=== PATIENT | female | born 2000 | race Caucasian/White ===

== ENCOUNTER 2023-06-11 04:49 | Outpatient (CLI) | payer SELFPAY | END 2023-06-11 04:50 | disposition home or self-care (01) | LOC: AMB 06-27 12:10 | PROVIDERS: Visit Provider Family Medicine | DX: M53.3 Sacrococcygeal disorders, not elsewhere classified (principal) | CPT/HCPCS: A0425; A0427 ==

== ENCOUNTER 2023-06-11 05:09 | Emergency (ER) | payer SELFPAY ==
[2023-06-11 05:14] VITALS: BP 135/74; PULSE 99; RESP 18; TEMP 36.8; O2SAT 99; BMI 26.6
--- NOTE | 2023-06-11 05:18 | ED.SKABFB ---
HPI - Skin/Abscess/Foreign Bdy General Time Seen by Provider: 05:18 Date Seen: 06/11/23 Chief complaint: Skin/Abscess/Foreign Body Stated complaint: tailbone pain Time Seen by Provider: 06/11/23 05:14 Source: patient and RN notes reviewed Mode of arrival: EMS Limitations: no limitations History of Present Illness HPI narrative: Seema is a very pleasant 23-year-old female with a history of broken tailbone 2 years ago who comes to the emergency room for evaluation of swelling at her tailbone. Patient notes over the past 5 days she has had increasing pressure and swelling in this area. She notes no fever or chills. Tonight she was getting off of her shift from [employer] and tried to walk home but it was too painful and thus called EMS. EMS did give her 75 mcg of fentanyl but she is still feeling discomfort. Upon further discussion she has not taken anything for the discomfort at this point. Again has not had any fever or chills. 2 years ago she states that she had a broken tailbone with a procedure followed by some physical therapy. Related Data Home Medications Medication Instructions Recorded Confirmed No Known Home Medications 06/11/23 06/11/23 Allergies Allergy/AdvReac Type Severity Reaction Status Date / Time No Known Drug Allergies Allergy Verified 06/11/23 05:18 Review of Systems Status of ROS: Reports: 6 or more systems reviewed and unremarkable except as noted in History and below Const: Denies: fever or chills Cardio: Denies: chest pain or shortness of breath with exertion Resp: Denies: shortness of breath GI: Reports: nausea; Denies: abdominal pain, vomiting, diarrhea or constipation : Denies: painful urination or urinary frequency Integ/Breast: Reports: redness, skin tenderness and skin swelling [facility] Medical History No significant past medical history Surgical History No significant past surgical history Social History Smoking Status: Never smoker Second hand tobacco smoke exposure: No How often do you have a drink containing alcohol: never How often do you have six or more drinks on one occasion: Never AUDIT-C Alcohol total score: 0 Non-prescribed substance use: denies use Exam Narrative: Exam Narrative: Patient is alert and oriented. Tearful. Mentating normally. Heart with tachycardic rate and regular rhythm and lungs are clear to auscultation. Patient is lying prone in room 5. Examination of the buttocks shows area of erythema and skin swelling/tautness from area of tailbone superiorly measuring approximately 8.5 cm. In the inferior aspect of this area she has a 2 cm scar in the midline. At the very top of this scar there appears to be a small poor. There is no drainage from this area but it is white in appearance. Significantly tender to the touch. Erythema does not extend out onto the buttocks. Const: Vital Signs, click to edit/add: Vital Signs - 24 hr 06/11/23 05:14 06/11/23 06:20 06/11/23 06:37 Temperature 98.2 F 98.2 F 98.2 F Pulse Rate [Right Pulse Oximeter] 99 84 Respiratory Rate 18 18 Blood Pressure [Ri ght Upper Arm] 135/74 125/74 Pulse Oximetry 99 99 Oxygen Delivery Me thod Room Air Room Air 06/11/23 06:38 Temperature 98.2 F Pulse Rate [Right Pulse Oximeter] 84 Respiratory Rate 18 Blood Pressure [Ri ght Upper Arm] 125/74 Pulse Oximetry Oxygen Delivery Me thod Documenting provider has reviewed patient's vital signs: yes Course Course Hospital Course: At this time patient is presenting with what appears to be pilonidal cyst. Initially I thought this may be complicated by a tailbone fracture and surgery and was considering CT of the pelvis. However, patient was able to contact her mom and this scar that I am seeing corresponds with drainage of a ?cyst?. Her mom states that she has had cyst since the age of 10. Therefore I do speak to patient and we speak about risks benefits of incision and drainage and packing of this area. We speak about infection, bleeding, skin damage nerve damage but I do think the risks outweigh benefits and patient agrees to this as well. Nursing is present and witnesses. Given level of discomfort not wrist resolved by narcotic pain medication, do suggest proceeding with incision and drainage in an expedited fashion. Vital Signs Vital signs: Initial Vital Signs Temperature 98.2 F 06/11/23 05:14 Temperature Source Temporal Artery Scan 06/11/23 05:14 Pulse Rate 99 06/11/23 05:14 Respiratory Rate 18 06/11/23 05:14 Blood Pressure 135/74 06/11/23 05:14 Blood Pressure Mean 94 06/11/23 05:14 Blood Pressure Position Sitting 06/11/23 05:14 Pulse Oximetry 99 06/11/23 05:14 Oxygen Delivery Method Room Air 06/11/23 05:14 Vital Signs Temperature 98.2 F 06/11/23 05:14 Pulse Rate 99 06/11/23 05:14 Respiratory Rate 18 06/11/23 05:14 Blood Pressure 135/74 06/11/23 05:14 Pulse Oximetry 99 06/11/23 05:14 Oxygen Delivery Method Room Air 06/11/23 05:14 Temperature 98.2 F 06/11/23 06:38 Pulse Rate 84 06/11/23 06:38 Respiratory Rate 18 06/11/23 06:38 Blood Pressure 125/74 06/11/23 06:38 Pulse Oximetry 99 06/11/23 06:37 Oxygen Delivery Method Room Air 06/11/23 06:37 MDM - Skin/Abscess/Foreign Bdy MDM Narrative Medical decision making narrative: 1. Pilonidal cyst-patient underwent successful incision and drainage with copious amounts of foul-smelling purulent fluid drained from the wound. Initially minimal incision was made and a large amount of fluid drained likely from superior fluid collection. I then numbed deeper tissues and with blunt dissection was able to under cover a deep pocket with again another copious amount of fluid drainage. Following this iodoform packing was placed. Patient noted great improvement in the pressure and discomfort. She has pain if I touch this area. Otherwise the packing wick was taped to buttock covered with 4x4s as well as ABD pad. At this time I do not believe patient needs antibiotic as she does not have extensive cellulitic extension and we were able to drain a large amount of fluid. I do however believe that she needs surgical follow-up as this appears to be a recurrent issue and we have had 2 discrete pockets of pus that drained. Recommend follow-up with our surgical consult on WednesdayJune 14. A culture was done today but I do expected to be multi microbial. 2. Pain-patient now will receive Toradol 15 mg IV. I think the anti-inflammatory should help significantly since the pressure has now been relief. Patient will be on ibuprofen 600 mg p.o. q.8 hours while at home. For pain not relieved by ibuprofen she may use Vicodin 5/325, 1-2 tabs p.o. q.4-6 hours p.r.n. pain 3. Disposition-home at this time. Recommend returning to the ER for increasing swelling, fever, vomiting, worsening symptoms. Discharge Plan Discharge Clinical Impression: Pilonidal cyst Patient Disposition: Home, Self-Care Condition: Improved Additional Instructions: For pain: Ibuprofen 600 mg every 8 hours. If pain continues use Vicodin 5/325 1-2 tabs every 4-6 hours as needed. Ear pain should gradually improve over the next 12 hours. I do want you to follow-up with our surgical team on WednesdayJune 14. We will have them call you with an appointment sometime today. You will have to hold off on showering while you have all of the pads in place. Return to the emergency room if you began experiencing fever, vomiting, worsening pain and as needed. Prescriptions: No Action No Known Home Medications Follow Up/Referrals: Provider,Not a Local [Primary Care Provider] - Stand Alone [facility]: [facility] Inst[facility] Procedures I/D Type: pilonidal cyst Details: extensive Pre procedure diagnosis: Pilonidal cyst Site marking: not applicable Verification/time out: correct patient, correct site and correct procedure Name of person performing procedure: Kerrie Mclaughlin Anesthesia I&D: lidocaine 1% and with Epi Amount of anesthesia used (mls): 7 Technique: incised with #11 blade Irrigation: No Packing used?: iodoform Estimated blood loss (if any): less than 5mls Complications: pain Conclusion: patient tolerated procedure
[2023-06-11 06:20] VITALS: TEMP 36.8
[2023-06-11] MEDS: KETOROLAC 15 MG/ML inj IVP (06:20)
--- NOTE | 2023-06-11 06:29 | ED.NURSE ---
pt requested script to go home with, instymed printed hard script for pain meds, signed by MD Mclaughlin and sent with pt to fill at pharmacy.
[2023-06-11 06:37] VITALS: BP 125/74; PULSE 84; RESP 18; TEMP 36.8; O2SAT 99
[2023-06-11 06:38] VITALS: BP 125/74; PULSE 84; RESP 18; TEMP 36.8
== END 2023-06-11 06:38 | disposition home or self-care (01) ==
PROVIDERS: Emergency Provider Family Medicine
DX: L05.91 Pilonidal cyst without abscess (principal)
CPT/HCPCS: 10061; 10080; 87070; 96374; 99284; J1885